=== PATIENT | male | born 1985 | race Caucasian/White ===

== ENCOUNTER 2017-12-17 14:53 | Emergency (ER) | payer OTHER ==
[~2017-12-17] VITALS: Ht 188 cm; Wt 97.8 kg
[2017-12-17 14:56] VITALS: TEMP 36.7; Ht 188 cm; Wt 97.8 kg
[2017-12-17] MEDS ORDERED: SODIUM CHLORIDE 0.9% 1000ML 1,000 ML IV STA (15:15)
--- NOTE | 2017-12-17 15:28 | EMERGENCY ROOM VISIT NOTE ---
History First contact with patient: 15:01 (Aylin Zamora PA-C) First contact with patient: 15:03 (Aftab Edwards M.D.) Chief Complaint: DIZZY Stated Complaint: LIGHT HEADED, PROFUSE SWEATING, LOW PULSE HAND NUM History of Present Illness The patient is a 32 year old male who presents to the Emergency Room with complaints of a presyncopal episode which occurred just prior to arrival. The patient states that he was at a wedding and was standing, holding up a book for the cork mixer when he began feeling lightheaded. He reports that he became very sweaty and felt like he was going to pass out. He was able to sit down and began feeling better. He reports he had a similar episode a few weeks ago while on an airplane. He has felt intermittently lightheaded over the past few weeks. Initially thought this may have been due to sinus issues and took an OTC sinus medication this morning. He does not have a history of these episodes but does state that 1-2 years ago, he had another similar episode on a flight. He is feeling better at this time, but states that he still feels a little "off." He reports that he ate a normal breakfast and lunch today. He does admit to drinking alcohol last night. He denies any drug use. He denies any chest pain or shortness of breath. He denies any cardiac history. He does admit to increased stress recently and states that they recently found out that his was . (Aylin Zamora PA-C) Review of Systems A complete 10 point review of systems was reviewed with the patient with pertinent positives and negatives as per history of present illness. All else were negative. (Aylin Zamora PA-C) Past Medical/Surgical History Medical Problems: (1) No significant active problems (Aftab Edwards M.D.) Social History Smoking Status: Never Smoker Alcohol Use: occasionally Marital Status: Housing Status: lives with significant other Occupation Status: employed (Aylin Zamora PA-C) Current/Historical Medications Scheduled Ascorbic Acid (Vitamin C), 500 MG PO DAILY Multivitamin (Multivitamin), 1 TAB PO DAILY Scheduled PRN Misc Natural Products (Sinus Formula), 1 TAB PO UD PRN for Sinus Pressure Physical Exam Vital Signs Date Time Temp Pulse Resp B/P (MAP) Pulse Ox O2 Delivery O2 Flow Rate FiO2 12/17/17 17:33 54 16 138/70 96 Room Air 12/17/17 16:46 55 16 137/70 100 Room Air 12/17/17 16:12 55 16 139/80 98 Room Air 12/17/17 15:38 48 12/17/17 15:30 50 156/86 98 Room Air 51 153/72 54 162/79 12/17/17 14:56 36.7 53 18 156/90 97 Room Air (Aftab Edwards M.D.) Physical Exam VITALS: Vitals are noted on the nurse's note and reviewed by myself. Vital signs stable. GENERAL: This is a 32-year-old male, in no acute distress, nondiaphoretic, well- developed well-nourished. SKIN: The skin was without rashes, erythema, edema, or bruising. EARS: External auditory canals clear, tympanic membranes pearly nesbitt without erythema or effusion bilaterally. EYES: Pupils equal round and reactive to light and accommodation. Extraocular movements intact. MOUTH: Mucous membranes moist. Tonsils are not enlarged. Pharynx without erythema or exudate. NECK: Supple without nuchal rigidity. No lymphadenopathy. HEART: Regular rate and rhythm without murmurs gallops or rubs. LUNGS: Clear to auscultation bilaterally without wheezes, rales or rhonchi. MUSCULOSKELETAL: Strength 5/5 throughout. NEURO: Patient was alert and oriented to person place and time. No focal neurological deficits. (Aylin Zamora ., PA-C) Medical Decision & Procedures Laboratory Results 12/17/17 15:25 Red Blood Count 4.68, Mean Corpuscular Volume 87.0, Mean Corpuscular Hemoglobin 31.0, Mean Corpuscular Hemoglobin Concent 35.6, Mean Platelet Volume 10.2, Neutrophils (%) (Auto) 81.6, Lymphocytes (%) (Auto) 12.0, Monocytes (%) (Auto) 6.1, Eosinophils (%) (Auto) 0.0, Basophils (%) (Auto) 0.1, Neutrophils # (Auto) 6.66, Lymphocytes # (Auto) 0.98, Monocytes # (Auto) 0.50, Eosinophils # (Auto) 0.00, Basophils # (Auto) 0.01 7/28/18 15:25 Test 12/17/17 15:25 White Blood Count 8.17 K/uL (4.8-10.8) Red Blood Count 4.68 M/uL (4.7-6.1) Hemoglobin 14.5 g/dL (14.0-18.0) Hematocrit 40.7 % (42-52) Mean Corpuscular Volume 87.0 fL (80-100) Mean Corpuscular Hemoglobin 31.0 pg (25-34) Mean Corpuscular Hemoglobin Concent 35.6 g/dl (32-36) Platelet Count 175 K/uL (130-400) Mean Platelet Volume 10.2 fL (7.4-10.4) Neutrophils (%) (Auto) 81.6 % Lymphocytes (%) (Auto) 12.0 % Monocytes (%) (Auto) 6.1 % Eosinophils (%) (Auto) 0.0 % Basophils (%) (Auto) 0.1 % Neutrophils # (Auto) 6.66 K/uL (1.4-6.5) Lymphocytes # (Auto) 0.98 K/uL (1.2-3.4) Monocytes # (Auto) 0.50 K/uL (0.11-0.59) Eosinophils # (Auto) 0.00 K/uL (0-0.5) Basophils # (Auto) 0.01 K/uL (0-0.2) RDW Standard Deviation 38.4 fL (36.4-46.3) RDW Coefficient of Variation 12.1 % (11.5-14.5) Immature Granulocyte % (Auto) 0.2 % Immature Granulocyte # (Auto) 0.02 K/uL (0.00-0.02) Anion Gap 5.0 mmol/L (3-11) Est Creatinine Clear Calc Drug Dose 84.3 ml/min Estimated GFR () 72.0 Estimated GFR (Non- 62.1 BUN/Creatinine Ratio 13.2 (10-20) Calcium Level 8.8 mg/dl (8.5-10.1) Total Bilirubin 0.7 mg/dl (0.2-1) Aspartate Amino Transf (AST/SGOT) 26 U/L (15-37) Alanine Aminotransferase (ALT/SGPT) 34 U/L (12-78) Alkaline Phosphatase 54 U/L (45-117) Total Protein 7.5 gm/dl (6.4-8.2) Albumin 4.5 gm/dl (3.4-5.0) Globulin 3.0 gm/dl (2.5-4.0) Albumin/Globulin Ratio 1.5 (0.9-2) Thyroid Stimulating Hormone (TSH) 1.750 uIu/ml (0.300-4.500) (Aftab Edwards M.D.) Medications Administered Medications (Trade) Dose Ordered Sig/Bridgett Route Start Time Stop Time Status Last Admin Dose Admin Sodium Chloride 1,000 ml @ 999 mls/hr Q1H1M STAT IV 12/17/17 15:15 12/17/17 16:15 DC 12/17/17 15:30 999 MLS/HR (Aftab Edwards M.D.) ECG Per My Interpretation Indication: other (presyncope) Rate (beats per minute): 63 Rhythm: sinus with SA Findings: 1st degree AV block, no acute ischemic change Comparison ECG Date: no prior available (Aylin Zamora ., RALPH) Medical Decision Differential diagnosis includes cardiac arrhythmia, dehydration, electrolyte imbalance, anxiety, infection, among others. The patient is a 32-year-old male who presents today complaining of a presyncopal episode occurring just prior to arrival. Patient admits he has had similar episodes in the past few weeks. Labs revealed no leukocytosis or concerning anemia. Patient does have a mild elevation of his creatinine at 1.49 , with slight elevation of BUN at 20. Glucose is slightly elevated at 109. Patient is in town for a wedding and admits that he was drinking alcohol last night. This elevation in creatinine may be secondary to a mild dehydration. TSH indicates a euthyroid state. EKG shows a first-degree AV block but is otherwise unremarkable. I believe that the patient's presyncopal episode was likely multifactorial. He admits to taking an [id number] pseudoephedrine this morning as well as he has been having issues with seasonal allergies. In addition to this, he admits to increased anxiety recently as he and his just found out recently that she is . He was advised to increase fluid intake and follow-up with his primary care provider this week. He is comfortable with this plan of care. He was advised to go to the closest emergency department if he does develop any worsening symptoms or syncopal episodes. The patient's case was reviewed with Dr. Edwards, ED attending physician, who agreed with my assessment and treatment plan. Based on the patient's presentation and work up, I feel the patient is stable for outpatient treatment. The patient was educated to return to the emergency department for any worsening of their current condition or new/concerning symptoms. He will follow up with his PCP. (Aylin Zamora PA-C) Medication Reconcilliation Current Medication List: was personally reviewed by me (yAlin Zamora PA-C) Blood Pressure Screening Patient's blood pressure: Elevated blood pressure Blood pressure disposition: Elevated BP felt to be situational, Referred to PCP (Aylin Zamora PA-C) Impression Primary Impression: Pre-syncope Departure Information Dispostion Home / Self-Care Condition GOOD Patient Instructions [facility] [employer] Additional Instructions Your creatinine was found to be there is slightly elevated today. This may be due to dehydration. This should be rechecked by your primary care provider within 1-2 weeks. As discussed, you should follow-up with your primary care provider and may need additional testing such as echocardiogram or Holter monitor. Make sure to stay well hydrated and drink plenty of fluids over the next few days. If you have any worsening of your symptoms, episodes of passing out, or any other new/concerning symptoms, you should go to the ER for evaluation.
[2017-12-17] MEDS ORDERED: ASCO500T3 PO (15:35)
[2017-12-17] MEDS ORDERED: MULT-506 PO (15:36)
[2017-12-17] MEDS ORDERED: MISCTAB PO (15:36)
[2017-12-17 15:48] LABS: BASO % 0.1 %; BASO ABS # 0.01 K/uL (0-0.2); HEMATOCRIT 40.7 % (42-52); HEMOGLOBIN 14.5 g/dL (14.0-18.0); IG# 0.02 K/uL (0.00-0.02); LYMPH ABS # 0.98 K/uL (1.2-3.4); MEAN CORPUSCULAR HGB CONC 35.6 g/dl (32-36); MEAN PLATELET VOLUME 10.2 fL (7.4-10.4); MONO % 6.1 %; NEUT % 81.6 %; NEUT ABS # 6.66 K/uL (1.4-6.5); PLATELET COUNT 175 K/uL (130-400); RED CELL DISTRIBUTION WIDTH CV 12.1 % (11.5-14.5); RED CELL DISTRIBUTION WIDTH SD 38.4 fL (36.4-46.3); WHITE BLOOD COUNT 8.17 K/uL (4.8-10.8)
[2017-12-17 16:16] LABS: ALBUMIN 4.5 gm/dl (3.4-5.0); CALCIUM 8.8 mg/dl (8.5-10.1); CREATININE 1.49 mg/dl (0.60-1.40); POTASSIUM 4.1 mmol/L (3.5-5.1); TOTAL PROTEIN 7.5 gm/dl (6.4-8.2)
[2017-12-17 17:33] VITALS: BP 138/70; PULSE 54; O2SAT 96
== END 2017-12-17 17:50 | disposition home or self-care (01) ==
LOC: C.EDB 14:54 → C.EDC 17:50
DX: R55 Syncope and collapse (principal)